=== PATIENT | male | born 1960 | race Caucasian/White ===

== ENCOUNTER 2017-05-19 20:54 | Emergency (ER) | payer OTHER ==
[~2017-05-19] VITALS: Ht 170.2 cm; Wt 56.8 kg
[~2017-05-19 20:54] MED LIST: NOCURR
[2017-05-19 22:56] VITALS: BP 121/73
== END 2017-05-19 23:13 | disposition home or self-care (01) ==
LOC: EMS 20:55
DX: S83.91XA Sprain of unspecified site of right knee, initial encounter (principal); B19.20 Unspecified viral hepatitis C without hepatic coma; F15.10 Other stimulant abuse, uncomplicated; F17.210 Nicotine dependence, cigarettes, uncomplicated; W19.XXXA Unspecified fall, initial encounter; Z88.8 Allergy status to other drugs, medicaments and biological substances; Y93.89 Activity, other specified; Y92.89 Other specified places as the place of occurrence of the external cause; Y99.8 Other external cause status
CPT/HCPCS: 29505; 99284

== ENCOUNTER 2021-05-14 14:15 | Emergency (ER) | payer MEDICAID, OTHER ==
[~2021-05-14] VITALS: Ht 170.2 cm; Wt 61.4 kg
[2021-05-14 14:20] VITALS: BP 119/70
== END 2021-05-14 15:58 | disposition home or self-care (01) ==
LOC: EMS 14:15
DX: B86 Scabies (principal); F17.210 Nicotine dependence, cigarettes, uncomplicated; F15.90 Other stimulant use, unspecified, uncomplicated; Z88.8 Allergy status to other drugs, medicaments and biological substances
CPT/HCPCS: 99283; Z7502

== ENCOUNTER 2022-04-14 11:24 | Emergency (ER) | payer MEDICAID ==
[~2022-04-14] VITALS: Ht 167.6 cm; Wt 63.6 kg
[2022-04-14 14:48] VITALS: BP 116/80
== END 2022-04-14 15:09 | disposition home or self-care (01) ==
LOC: EMS 11:24
DX: B86 Scabies (principal); F17.210 Nicotine dependence, cigarettes, uncomplicated; F15.90 Other stimulant use, unspecified, uncomplicated; Z87.19 Personal history of other diseases of the digestive system; Z88.8 Allergy status to other drugs, medicaments and biological substances; Z59.00 Homelessness unspecified
CPT/HCPCS: 99282; Z7502